=== PATIENT | female | born 1995 | race Caucasian/White ===

== ENCOUNTER → 2017-05-08 | Outpatient (CLI) | payer OTHER ==
--- NOTE | 2017-05-08 14:56 | DIAGNOSTIC IMAGING REPORT ---
L RIBS UNILATERAL W/CHEST HISTORY: 21 years-old Female LEFT SIDE RIB PAIN acute left-sided rib pain without reported trauma COMPARISON: None available TECHNIQUE: PA view the chest with 4 views of the left ribs FINDINGS: Cardiac mediastinal and hilar silhouettes are within normal limits. There is no pneumothorax, pleural effusion, focal airspace consolidation or overt pulmonary edema. No acute rib fracture identified. IMPRESSION: 1. No acute cardiopulmonary process. 2. No acute rib fracture identified. The above report was generated using voice recognition software. It may contain grammatical, syntax or spelling errors. Electronically signed by: Fredy De Jesus M.D. 05/08/2017 2:55 PM Dictated Date/Time: 05/08/2017 2:52 PM
== END | disposition home or self-care (01) ==
LOC: C.RDSM 14:38
PROVIDERS: ATTEND Family Medicine
DX: R07.81 Pleurodynia (principal)

== ENCOUNTER → 2017-09-27 | Outpatient (CLI) | payer OTHER ==
--- NOTE | 2017-09-27 16:00 | DIAGNOSTIC IMAGING REPORT ---
R FOOT MIN 3 VIEWS HISTORY: 22 years-old Female RIGHT FOOT PAIN acute right-sided foot pain, most pronounced within the region of the metatarsals. History of running. COMPARISON: None available TECHNIQUE: 3 views of the right foot FINDINGS: Mild cortical thickening is noted involving lateral aspect of the mid diaphyseal third metatarsal. Bones otherwise appear intact and unremarkable without acute fracture or dislocation. No significant degenerative changes or definite acute stress fracture. Soft tissues are unremarkable without opaque foreign body. IMPRESSION: 1. No acute fracture or dislocation. 2. Mild cortical thickening of the lateral aspect mid diaphyseal third metatarsal may reflect subtle stress response or healing stress fracture. Correlate with point tenderness. The above report was generated using voice recognition software. It may contain grammatical, syntax or spelling errors. Electronically signed by: Fredy De Jesus M.D. 09/27/2017 3:59 PM Dictated Date/Time: 09/27/2017 3:56 PM
== END | disposition home or self-care (01) ==
LOC: C.RDSM 15:45
PROVIDERS: ATTEND Family Medicine
DX: M79.671 Pain in right foot (principal)